=== PATIENT | male | born 1980 | race Caucasian/White ===

== ENCOUNTER 2025-01-29 08:41 | Outpatient (CLI) | payer OTHER, SELFPAY ==
--- NOTE | ~2025-01-29 | XR_ITS ---
Right Shoulder Technique: AP and scapular Y views were obtained. Clinical History: Pain Findings: No fracture or dislocation is seen. Osseous alignment is anatomic. The glenohumeral and acr omioclavicular joint spaces are preserved. Soft tissues are unremarkable. Impression: Unremarkable right shoulder radiographs. Reviewed, dictated and finalized at [facility]. Impression: Unremarkable right shoulder radiographs.
== END 2025-01-29 08:42 | disposition home or self-care (01) ==
LOC: CHSLAB 08:44
PROVIDERS: PCP Family Medicine; Visit Provider Orthopaedic Surgery
DX: M25.511 Pain in right shoulder (principal)
CPT/HCPCS: 73030

== ENCOUNTER 2025-02-20 08:26 | Outpatient (CLI) | payer OTHER, SELFPAY ==
--- NOTE | ~2025-02-20 | MR_ITS ---
MRI of the right shoulder Technique: Axial proton-density fat-sat images, coronal proton density fat-sat and T2 fat-sat images, and sagittal T1-weighted and T2 fat-sat images were acquired. Clinical History: Injury Findings: There is moderate AC joint degenerative change with prominent reactive marrow edema at the distal clavicle. Small subacromial spur present. Coracoclavicular, coracoacromial, and coracohumeral ligaments are intact. Supraspinatus tendon its demonstrate focal low-grade articular surface partial tear at the very dista l insertion. There is moderate supraspinatus and infraspinatus tendinosis. No infraspinatus tear. Sub scapularis tendon is intact with mild to moderate tendinosis. Tendon of long of the biceps is intact. No definite labral tear seen. Inferior glenohumeral ligament is intact. No degenerative change or effusion of the glenohumeral join t. No significant fluid distention of the subacromial/subdeltoid bursa. No muscle atrophy or edema. Impression: Linear low-grade articular surface partial tear at the distal supraspinatus tendon insertion. Moderat e rotator cuff tendinosis. Moderate AC joint degenerative change. Reviewed, dictated and finalized at location . Impression: Linear low-grade articular surface partial tear at the distal supraspinatus ten don insertion. Moderate rotator cuff tendinosis. Moderate AC joint degenerative change.
== END 2025-02-20 08:27 | disposition home or self-care (01) ==
LOC: MICIMG 08:27
PROVIDERS: PCP Family Medicine; Visit Provider Orthopaedic Surgery
DX: S46.811A Strain of other muscles, fascia and tendons at shoulder and upper arm level, right arm, initial encounter (principal); X58.XXXA Exposure to other specified factors, initial encounter; M75.31 Calcific tendinitis of right shoulder; M19.011 Primary osteoarthritis, right shoulder
CPT/HCPCS: 73221

== ENCOUNTER 2025-09-10 14:26 | Outpatient (CLI) | payer OTHER, SELFPAY ==
--- NOTE | ~2025-09-10 | US_ITS ---
EXAMINATION: US carotid duplex BI DATE: 09/10/2025 14:55 INDICATION: Partial retinal artery occlusion TECHNIQUE: Grayscale, color Doppler, and pulsed Doppler images of the cervical carotid arteries were obtained. The degree of vessel stenosis is placed in one of the following categories: normal, <50%, 50-69%, >=70% but less than near- occlusion, near-occlusion, or total occlusion. Note that percent stenosis relative to normal distal artery lumen diameter is indirectly measured from velocity measurements as described by Luisito, et al. Radiology 2003; 229:340-346. COMPARISON: None. FINDINGS: RIGHT: The right common carotid artery (CCA) peak systolic velocity (PSV) is 109 cm/s. The right internal carotid artery (ICA) PSV is 88 cm/s. The right ICA end- diastolic velocity (EDV) is 25 cm/s. The right ICA/CCA PSV ratio is 0.8. Grayscale and color Doppler images yield an estimate of <50% diameter reduction from plaque in the ICA. The external carotid artery (ECA) PSV is 107 cm/s. There is antegrade flow in the right vertebral artery. LEFT: The left CCA PSV is 105 cm/s. The left ICA PSV is 86 cm/s. The left ICA EDV is 40 cm/s. The left ICA/CCA PSV ratio is 0.8. Grayscale and color Doppler images yield an estimate of <50% diameter reduction from plaque in the ICA. The ECA PSV is 100 cm/s. There is antegrade flow in the left vertebral artery. IMPRESSION: 1. <50% stenosis from minimal plaque in the right internal carotid artery. 2. <50% stenosis from minimal plaque in the left internal carotid artery. Reviewed, dictated and finalized at location A. ER MANAGER
--- NOTE | 2025-09-10 14:34 | ECHO_ITS ---
Patient Info Name: Michael Pollard Age: 45 years : 1980 Gender: Male Ht: 67 in Wt: 206 lbs BSA: 2.13 m2 HR: 98 bpm BP: 125 / 93 mmHg Technical Quality: Good Exam Date: 09/10/2025 3:26 PM Patient Status: O Admit Date: 09/10/2025 Exam Type: CA echo dop bubble study w con Complete two-dimentional, color flow and Doppler transthoracic echocardiogram is performed with agitated saline and with contrast to opacify the left ventricle and to improve the delineation of the left ventricle endocardial borders. Staff Referring Physician: Adri Singleton Training Development Manager: Galo Chao III Attending Provider: Adri Singleton Contrast/Agitated Saline Contrast/Ag. Saline: Definity Amount: 2.00 ml Administered By: Galo Chao III Existing IV Access: No IV Access Condition: patent with no signs of infiltration New IV Access: Left Site Condition: IV removed Contrast/Ag. Saline: Agitated Saline Amount: 20.00 ml Administered By: Galo Chao III Existing IV Access: No IV Access Condition: patent with no signs of infiltration New IV Access: Left Site Condition: IV removed Summary 1. Definity contrast administered improved wall motion interpretation. 2. Left ventricular chamber dimension is normal. 3. Left ventricular systolic function is normal, estimated at 65-70. 4. There is moderate concentric increased left ventricular wall thickness. 5. The left ventricular diastolic function is grade I diastolic dysfunction. 6. E/e' 6 is not elevated. Left Ventricle Left ventricular chamber dimension is normal. Left ventricular systolic function is normal, estimated at 65-70. There is moderate concentric increased left ventricular wall thickness. The left ventricular diastolic function is grade I diastolic dysfunction. Definity contrast administered improved wall motion interpretation. E/e' 6 is not elevated. Right Ventricle Right ventricular chamber dimension is normal. Right ventricular systolic function is normal and with normal TAPSE 2.6.. Left Atria Left atrial chamber dimension is normal. Right Atria Right atrial chamber dimension is normal. Atrial Septum Interatrial septum not well visualized by 2D and agitated saline imaging. Agitated saline injection with and without valsalva maneuver opacified right side cardiac chambers without shunt to left side cardiac chambers. Aortic Valve The aortic valve is trileaflet. There is no aortic valve stenosis. There is no aortic valve regurgitation. Pulmonic Valve There is no pulmonic regurgitation. Mitral Valve There is no mitral valve stenosis. There is no mitral valve regurgitation. Tricuspid Valve There is no tricuspid valve regurgitation. Pericardium/Pleural There is no pericardial effusion. Inferior Vena Cava Normal inferior vena cava with >50% collapse upon inspiration consistent with normal right atrial pressure, 5 mmHg. Aorta The aortic root size at the sinus of Valsalva is normal. Left Ventricular Outflow Tract Name Value Normal LVOT 2D LVOT Diameter 2.5 cm LVOT Doppler LVOT Peak Velocity 119 cm/s LVOT Peak Gradient 6 mmHg LVOT Mean Gradient 3 mmHg LVOT VTI 19 cm LVOT VTI/AV VTI Ratio 0.8 LVOT Stroke Volume 91 ml LVOT CO 8.2 l/min LVOT CI 3.8 l/min/m2 Pulmonic Valve Name Value Normal PV Doppler PV Peak Velocity 102 cm/s PV Peak Gradient 4 mmHg PV Mean Gradient 3 mmHg Mitral Valve Name Value Normal MV Doppler MV Peak Gradient 5 mmHg MV Mean Gradient 2 mmHg MV Area (Cont Eq VTI) 5.2 cm2 MV Diastolic Function MV E Peak Velocity 72 cm/s MV A Peak Velocity 88 cm/s MV E/A 0.8 MV Decel Time (PW) 311 ms MV Annular TDI MV E/e' (Septal) 7.3 MV E/e' (Lateral) 5.1 MV E/e' (Average) 6.2 Tricuspid Valve Name Value Normal Estimated PAP/RSVP RA Pressure 5 mmHg <=5 TV Annular TDI TV Lateral Lis s' Velocity 16.2 cm/s >=9.5 Aortic Valve Name Value Normal AV Doppler AV Peak Velocity 144 cm/s AV Peak Gradient 8 mmHg AV Mean Gradient 4 mmHg AV VTI 25 cm AV Area (Cont Eq VTI) 3.7 cm2 >=3.0 AV Area (Cont Eq Julio) 3.9 cm2 AV DI (Julio) 0.83 AV Regurgitation 2D LVOT Area 4.7 cm2 Ventricles Name Value Normal LV Dimensions 2D/MM IVS Diastolic Thickness (2D) 1.4 cm 0.6-1.0 LVID Diastole (2D) 5.1 cm 4.2-5.8 LVIW Diastolic Thickness (2D) 1.2 cm 0.6-1.0 LVID Systole (2D) 3.4 cm 2.5-4.0 LVOT Diameter 2.5 cm LV Mass (2D Cubed) 266.42 g 88.00-224.00 LV Mass Index (2D Cubed) 125 g/m2 49-115 Relative Wall Thickness (2D) 0.47 <=0.42 LV Fractional Shortening/Ejection Fraction 2D/MM LV Fractional Shortening (2D) 33 % 25-43 LV EF (2D Teichholz) 61 % LV Diastolic Volume (4C MOD) 78 ml LV EF (4C MOD) 66 % LV Diastolic Volume (2C MOD) 71 ml LV EF (2C MOD) 75 % LV Diastolic Volume (BP MOD) 77 ml 62-150 LV Diastolic Volume Index (BP MOD) 36 ml/m2 34-74 LV Systolic Volume (BP MOD) 22 ml 21-61 LV Systolic Volume Index (BP MOD) 10 ml/m2 11-31 LV EF (BP MOD) 72 % 52-72 LV Diastolic Length (4C) 8.1 cm LV Systolic Length (4C) 6.5 cm LV Stroke Volume (4C MOD) 52 ml Atria Name Value Normal LA Dimensions LA Volume (4C A-L) 53 ml LA Volume (BP A-L) 57 ml RA Dimensions RA Systolic Major [place] Length (4C) 5.2 cm 2.1-2.7 RA Area (4C) 18.1 cm2 <=18.0 Report Signatures
[2025-09-10] MEDS: PERFLUTREN LIPID MICROSPHERES 1.5 ML VIAL DILUTED TO 10 ML TOTAL VOLUME IV PUSH (16:47)
--- NOTE | 2025-09-10 16:47 | IVDEFINITY ---
Prior to administration of IV Definity the patient was educated on the risks and benefits of the imaging enhancing agent including potential adverse side effects. The patient verbalized understanding. Allergies were verified. No exclusion criteria were identified and at least one of the following inclusion criteria were met: 1) physician request, 2) patient technically difficult to image (per the [place] [employer] guidelines of two or more segments not discernable within the apical view), or 3) questionable left ventricular function. ?
== END 2025-09-10 14:27 | disposition home or self-care (01) ==
PROVIDERS: PCP Family Medicine; Visit Provider Nurse Practitioner Family
DX: I10 Essential (primary) hypertension (principal); H34.9 Unspecified retinal vascular occlusion; R94.31 Abnormal electrocardiogram [ECG] [EKG]; H34.211 Partial retinal artery occlusion, right eye; I65.23 Occlusion and stenosis of bilateral carotid arteries
CPT/HCPCS: 93880; 96375; C8929